=== PATIENT | female | born 1965 | race Caucasian/White ===

== ENCOUNTER 2016-10-01 15:26 | Emergency (ER) | payer BC, MEDICAID ==
[~2016-10-01] VITALS: Ht 172.7 cm; Wt 54.4 kg
--- NOTE | 2016-10-01 16:31 | NUR ---
Patient discharged to home in stable conditon. Written and verbal after care instructions given. Patient verbalizes understanding of instructions.
== END 2016-10-01 16:34 | disposition home or self-care (01) ==
LOC: ER 15:26
DX: G54.0 Brachial plexus disorders (principal); R20.0 Anesthesia of skin; F41.9 Anxiety disorder, unspecified; F10.20 Alcohol dependence, uncomplicated; Z88.2 Allergy status to sulfonamides
CPT/HCPCS: 99281; A4663

== ENCOUNTER 2018-12-15 22:09 | Emergency (ER) | payer MEDICAID ==
[~2018-12-15] VITALS: Ht 172.7 cm; Wt 54.4 kg
[2018-12-15] MEDS ORDERED: CLINDAMYCIN HCL 150 MG CAPSULE ONE (23:13)
--- NOTE | 2018-12-15 23:14 | NUR ---
Patient discharged to home in stable conditon. Written and verbal after care instructions given. Patient verbalizes understanding of instructions. WALKED OUT OF ER WITH NO DISTRESS NOTED
[2018-12-15 23:15] VITALS: BP 130/88
[2018-12-15] MEDS ORDERED: CLINDAMYCIN HCL 150 MG CAPSULE PO ONE (23:15)
== END 2018-12-15 23:16 | disposition home or self-care (01) ==
LOC: ER 22:10
DX: S90.512A Abrasion, left ankle, initial encounter (principal); B95.8 Unspecified staphylococcus as the cause of diseases classified elsewhere; F41.9 Anxiety disorder, unspecified; Z88.2 Allergy status to sulfonamides; X58.XXXA Exposure to other specified factors, initial encounter; Y93.89 Activity, other specified; Y92.89 Other specified places as the place of occurrence of the external cause; Y99.8 Other external cause status
CPT/HCPCS: A4663

== ENCOUNTER 2024-12-13 14:08 | Emergency (ER) | payer MEDICAID ==
[~2024-12-13] VITALS: Ht 172.7 cm; Wt 56.7 kg
[2024-12-13] MEDS ORDERED: HYDR-3972 PO (15:15)
[2024-12-13 15:39] VITALS: BP 106/76; TEMP 98; O2SAT 97
== END 2024-12-13 15:40 | disposition home or self-care (01) ==
LOC: ER 14:08
DX: S97.121A Crushing injury of right lesser toe(s), initial encounter (principal); F41.9 Anxiety disorder, unspecified; Z88.2 Allergy status to sulfonamides; Z88.7 Allergy status to serum and vaccine; Z90.49 Acquired absence of other specified parts of digestive tract; Z87.39 Personal history of other diseases of the musculoskeletal system and connective tissue; W23.0XXA Caught, crushed, jammed, or pinched between moving objects, initial encounter; Y93.89 Activity, other specified; Y92.89 Other specified places as the place of occurrence of the external cause; Y99.8 Other external cause status
CPT/HCPCS: 73660; A4606; A4663